=== PATIENT | male | born 1960 | race Caucasian/White ===

== ENCOUNTER → 2018-05-19 08:51 | Outpatient (CLI) | payer MEDICARE, BC ==
[2013-12-28 08:41] VITALS: BMI 41.1
[~2018-05-19 08:51] MED LIST: DOLOPHINE HCL5 MG PO; GLUCOPHAGE500 MG PO; GLUCOTROL 5 MG T5 MG PO; INDERAL 40 MG T40 MG PO; NEURONTIN 400400 MG PO
== END | disposition home or self-care (01) ==
LOC: D.CT 08:30
DX: R10.9 Unspecified abdominal pain (principal)

== ENCOUNTER 2018-05-26 23:49 | Emergency (ER) | payer MEDICARE, BC ==
[~2018-05-26] VITALS: Ht 188 cm; Wt 143.2 kg
[2018-05-27 00:04] VITALS: Ht 188 cm; Wt 143.2 kg
[2018-05-27] MEDS ORDERED: HYDROXYZINE HCL10 MG PO (00:07)
[2018-05-27] MEDS ORDERED: NORCO 10-325 TA1 TAB PO (00:07)
[2018-05-27] MEDS ORDERED: BENADRYL25 MG PO (00:07)
[2018-05-27] MEDS ORDERED: LISINOPRIL10 MG PO (00:08)
[2018-05-27] MEDS ORDERED: OMEPRAZOLE40 MG PO (00:08)
[2018-05-27] MEDS ORDERED: NEURONTIN 300300 MG PO (00:30)
[2018-05-27] MEDS ORDERED: ATIVAN1 MG PO (00:31)
[2018-05-27 02:24] VITALS: BP 124/68
== END 2018-05-27 02:25 | disposition home or self-care (01) ==
LOC: D.ER 23:49
DX: F11.23 Opioid dependence with withdrawal (principal); M54.5 Low back pain; E11.9 Type 2 diabetes mellitus without complications; G62.9 Polyneuropathy, unspecified; I10 Essential (primary) hypertension

== ENCOUNTER 2018-06-09 11:02 | Emergency (ER) | payer MEDICARE, BC ==
[~2018-06-09] VITALS: Ht 188 cm; Wt 139.1 kg
[~2018-06-09 11:02] MED LIST changes: +ATIVAN1 MG PO; +BENADRYL25 MG PO; +HYDROXYZINE HCL10 MG PO; +LISINOPRIL10 MG PO; +NEURONTIN 300300 MG PO; +NORCO 10-325 TA1 TAB PO; +OMEPRAZOLE40 MG PO
[2018-06-09 11:19] VITALS: Ht 188 cm; Wt 139.1 kg
[2018-06-09] MEDS ORDERED: NEURONTIN 300300 MG PO (11:21)
[2018-06-09] MEDS ORDERED: LEXAPRO10 MG PO (11:21)
[2018-06-09] MEDS ORDERED: NORCO 10-325 TA1 TAB PO (11:21)
[2018-06-09] MEDS ORDERED: LISINOPRIL10 MG PO (11:22)
[2018-06-09] MEDS ORDERED: GLUCOPHAGE1000 MG PO (11:22)
[2018-06-09] MEDS ORDERED: OMEPRAZOLE40 MG PO (11:22)
[2018-06-09 12:46] LABS: APPEARANCE HAZY (CLEAR); BILIRUBIN NEGATIVE (NEGATIVE); COLOR YELLOW (YELLOW); GLUCOSE 250 mg/dL (NEGATIVE); KETONE NEGATIVE (NEGATIVE); NITRITE NEGATIVE (NEGATIVE); PROTEIN NEGATIVE (NEGATIVE); SPECIFIC GRAVITY 1.025 (1.005-1.020); UROBILINOGEN NORMAL (NORMAL)
[2018-06-09 12:49] LABS: BASOPHILS 0.3 % (0-2); EOSINOPHILS 1.9 % (0-7); HEMATOCRIT 40.9 % (42.0-54.0); HEMOGLOBIN 13.4 g/dL (13.5-17.5); IMMATURE GRANULOCYTES 0.3 % (0-5); MCH 27.6 pg (26.0-34.0); MCHC 32.8 g/dL (31.0-37.0); MCV 84.2 fL (80.0-100.0); MEAN PLATELET VOLUME 10.7 fL (7.4-10.4); MONOCYTES 8.1 % (2-11); NEUTROPHILS 67.4 % (40-80); PLATELET COUNT 166 10x3/uL (130-400); RBC 4.86 10x6/uL (4.20-6.10); RDW 14.2 % (11.5-14.5); WBC 6.3 10x3/uL (4.8-10.8)
[2018-06-09 12:59] LABS: ALBUMIN 3.2 g/dL (3.4-5.0); ALKALINE PHOSPHATASE 48 U/L (46-116); ALT (SGPT) 49 U/L (10-68); BILIRUBIN - TOTAL 0.28 mg/dL (0.2-1.3); CALC OSMOLALITY 281 mosm/kg (275-300); CALCIUM 8.4 mg/dL (8.5-10.1); CARBON DIOXIDE 25.7 mmol/L (21.0-32.0); CHLORIDE - SERUM 100 mmol/L (98-107); POTASSIUM - SERUM 3.7 mmol/L (3.5-5.1); PROTEIN - SERUM 7.3 g/dL (6.4-8.2); SODIUM 137 mmol/L (136-145); UREA NITROGEN 10 mg/dL (7-18); eGFR NON AFRICAN AMERICAN 81 mL/min (90-120)
[2018-06-09 13:01] LABS: GLUCOSE 261 mg/dL (74-106)
[2018-06-09 15:23] VITALS: BP 133/87
== END 2018-06-09 15:24 | disposition home or self-care (01) ==
LOC: D.ER 11:02
PROVIDERS: Family Medicine
DX: F41.9 Anxiety disorder, unspecified (principal); R19.7 Diarrhea, unspecified; F11.23 Opioid dependence with withdrawal; E11.9 Type 2 diabetes mellitus without complications; I10 Essential (primary) hypertension

== ENCOUNTER 2018-07-03 18:10 | Emergency (ER) | payer MEDICARE, BC ==
[~2018-07-03] VITALS: Ht 188 cm; Wt 134.7 kg
[~2018-07-03 18:10] MED LIST changes: +GLUCOPHAGE1000 MG PO; +LEXAPRO10 MG PO
[2018-07-03 18:16] VITALS: Ht 188 cm; Wt 134.7 kg
[2018-07-03 19:46] LABS: BASOPHILS 0.3 % (0-2); EOSINOPHILS 1.2 % (0-7); HEMATOCRIT 42.4 % (42.0-54.0); HEMOGLOBIN 14.5 g/dL (13.5-17.5); IMMATURE GRANULOCYTES 0.2 % (0-5); LYMPHOCYTES 21.8 % (15-50); MCH 28.5 pg (26.0-34.0); MCHC 34.2 g/dL (31.0-37.0); MCV 83.3 fL (80.0-100.0); MEAN PLATELET VOLUME 11.6 fL (7.4-10.4); MONOCYTES 9.5 % (2-11); PLATELET COUNT 196 10x3/uL (130-400); RBC 5.09 10x6/uL (4.20-6.10); RDW 14.3 % (11.5-14.5); WBC 6.4 10x3/uL (4.8-10.8)
[2018-07-03 20:03] LABS: ALBUMIN 3.7 g/dL (3.4-5.0); ALKALINE PHOSPHATASE 49 U/L (46-116); ALT (SGPT) 42 U/L (10-68); CALC OSMOLALITY 273 mosm/kg (275-300); CALCIUM 8.7 mg/dL (8.5-10.1); CARBON DIOXIDE 25.6 mmol/L (21.0-32.0); CHLORIDE - SERUM 101 mmol/L (98-107); CREATININE - SERUM 0.8 mg/dL (0.6-1.3); POTASSIUM - SERUM 3.6 mmol/L (3.5-5.1); PROTEIN - SERUM 7.8 g/dL (6.4-8.2); SODIUM 137 mmol/L (136-145); UREA NITROGEN 11 mg/dL (7-18); eGFR NON AFRICAN AMERICAN > 90 mL/min (90-120)
[2018-07-03 20:10] LABS: GLUCOSE 108 mg/dL (74-106)
[2018-07-03 20:13] LABS: CKMB 0.8 U/L (0.0-3.6); CREATINE KINASE 72 UL (21-232); MAGNESIUM - SERUM 1.7 mg/dL (1.8-2.4); TROPONIN-I < 0.017 ng/mL (0.000-0.060)
[2018-07-03 21:38] LABS: APPEARANCE CLEAR (CLEAR); BILIRUBIN NEGATIVE (NEGATIVE); COLOR YELLOW (YELLOW); GLUCOSE NEGATIVE (NEGATIVE); KETONE MODERATE mg/dL (NEGATIVE); NITRITE NEGATIVE (NEGATIVE); PROTEIN NEGATIVE (NEGATIVE); SPECIFIC GRAVITY 1.015 (1.005-1.020); UROBILINOGEN NORMAL (NORMAL)
[2018-07-03 21:43] LABS: BACTERIA FEW /hpf (NONE SEEN); RED CELLS - URINE 0-5 /hpf (0-5); WHITE CELLS - URINE 0-5 /hpf (0-5)
[2018-07-03 23:37] VITALS: BP 166/75
== END 2018-07-03 23:37 | disposition home or self-care (01) ==
LOC: D.ER 18:10
PROVIDERS: Family Medicine
DX: I10 Essential (primary) hypertension (principal); R10.84 Generalized abdominal pain; R00.0 Tachycardia, unspecified; R51 Headache; E11.9 Type 2 diabetes mellitus without complications

== ENCOUNTER 2018-09-18 09:24 | Emergency (ER) | payer MEDICARE, BC ==
[2018-09-18] MEDS ORDERED: VICTOZA0.6 MG/0.1 SQ (09:38)
[2018-09-18] MEDS ORDERED: SINEQUAN25 MG PO (09:39)
[2018-09-18] MEDS ORDERED: CIPRO250 MG PO (09:59)
[2018-09-18 10:11] LABS: ALBUMIN 3.7 g/dL (3.4-5.0); ANION GAP 15.5 mmol/L (8-16); BILIRUBIN - TOTAL 1.11 mg/dL (0.2-1.3); CALCIUM 8.8 mg/dL (8.5-10.1); CARBON DIOXIDE 23.9 mmol/L (21.0-32.0); CREATININE - SERUM 1.2 mg/dL (0.6-1.3); MAGNESIUM - SERUM 1.2 mg/dL (1.8-2.4); POTASSIUM - SERUM 3.4 mmol/L (3.5-5.1); PROTEIN - SERUM 7.8 g/dL (6.4-8.2)
[2018-09-18 10:25] LABS: BASOPHILS 0.2 % (0-2); EOSINOPHILS 0.2 % (0-7); HEMATOCRIT 40.9 % (42.0-54.0); HEMOGLOBIN 14.1 g/dL (13.5-17.5); IMMATURE GRANULOCYTES 0.4 % (0-5); LYMPHOCYTES 10.7 % (15-50); MCH 29.1 pg (26.0-34.0); MCHC 34.5 g/dL (31.0-37.0); MCV 84.3 fL (80.0-100.0); MEAN PLATELET VOLUME 10.7 fL (7.4-10.4); MONOCYTES 7.2 % (2-11); NEUTROPHILS 81.3 % (40-80); PLATELET COUNT 213 10x3/uL (130-400); RBC 4.85 10x6/uL (4.20-6.10); RDW 13.7 % (11.5-14.5); WBC 19.7 10x3/uL (4.8-10.8)
== END 2018-09-18 12:29 | disposition home or self-care (01) ==
LOC: D.ER 09:24
PROVIDERS: Emergency Medicine
DX: R31.9 Hematuria, unspecified (principal); N39.0 Urinary tract infection, site not specified

== ENCOUNTER 2020-09-01 17:23 | Emergency (ER) | payer MEDICARE ==
[~2020-09-01] VITALS: Ht 188 cm; Wt 137.7 kg
[~2020-09-01 17:23] MED LIST changes: +CIPRO250 MG PO; +SINEQUAN25 MG PO; +VICTOZA0.6 MG/0.1 SQ
[2020-09-01 17:31] VITALS: Ht 188 cm; Wt 137.7 kg
[2020-09-01] MEDS ORDERED: ZONISAMIDE50 MG PO (17:34)
[2020-09-01] MEDS ORDERED: SOLIQUA (17:34)
[2020-09-01] MEDS ORDERED: METHADONE5 MG PO (17:36)
[2020-09-01] MEDS ORDERED: LYRICA25 MG PO (17:36)
[2020-09-01 18:24] LABS: BASOPHILS 0.3 % (0-2); EOSINOPHILS 1.1 % (0-7); HEMATOCRIT 42.2 % (42.0-54.0); HEMOGLOBIN 14.1 g/dL (13.5-17.5); IMMATURE GRANULOCYTES 0.1 % (0-5); LYMPHOCYTE ABS# 1.78 10x3/uL (1.32-3.57); LYMPHOCYTES 17.2 % (15-50); MCH 28.3 pg (26.0-34.0); MCHC 33.4 g/dL (31.0-37.0); MCV 84.6 fL (80.0-100.0); MONOCYTES 5.3 % (2-11); NEUTROPHIL ABS# 7.85 10x3/uL (1.78-5.38); PLATELET COUNT 233 10x3/uL (130-400); RBC 4.99 10x6/uL (4.20-6.10); RDW 13.8 % (11.5-14.5); WBC 10.3 10x3/uL (4.8-10.8)
[2020-09-01 18:30] LABS: CALC OSMOLALITY 280 mosm/kg (275-300); CALCIUM 9.1 mg/dL (8.5-10.1); CARBON DIOXIDE 27.3 mmol/L (21.0-32.0); CHLORIDE - SERUM 101 mmol/L (98-107); CREATININE - SERUM 0.9 mg/dL (0.6-1.3); GLUCOSE 141 mg/dL (74-106); POTASSIUM - SERUM 4.1 mmol/L (3.5-5.1); SODIUM 139 mmol/L (136-145); UREA NITROGEN 15 mg/dL (7-18); eGFR NON AFRICAN AMERICAN > 90 mL/min (90-120)
[2020-09-01 18:46] LABS: ALBUMIN 3.5 g/dL (3.4-5.0); ALKALINE PHOSPHATASE 76 U/L (30-120); ALT (SGPT) 41 U/L (10-68); AMYLASE - SERUM 39 U/L (25-115); BILIRUBIN - TOTAL 0.38 mg/dL (0.2-1.3); CKMB 1.5 U/L (0.0-3.6); CREATINE KINASE 46 UL (21-232); LIPASE 57 U/L (73-393); MAGNESIUM - SERUM 1.6 mg/dL (1.8-2.4); PROTEIN - SERUM 7.6 g/dL (6.4-8.2)
[2020-09-01 18:47] LABS: TROPONIN-I < 0.017 ng/mL (0.000-0.060)
[2020-09-01 20:16] LABS: APTT 31.3 SECONDS (22.8-39.4); INR 1.09 (0.85-1.17); PROTIME 13.1 SECONDS (11.6-15.0)
[2020-09-01] MEDS ORDERED: ZOFRAN ODT4 MG/UDTAB PO (21:31)
[2020-09-01 22:03] VITALS: BP 100/75
== END 2020-09-01 22:03 | disposition home or self-care (01) ==
LOC: D.ER 17:23
PROVIDERS: Family Medicine
DX: K30 Functional dyspepsia (principal); R07.89 Other chest pain; R11.0 Nausea; E11.9 Type 2 diabetes mellitus without complications; I10 Essential (primary) hypertension; K21.9 Gastro-esophageal reflux disease without esophagitis; Z79.84 Long term (current) use of oral hypoglycemic drugs